=== PATIENT | male | born 1930 | race Caucasian/White ===

== ENCOUNTER → 2017-01-16 | Day surgery (SDC) | payer MEDICARE, BC ==
[~2017-01-16] MED LIST: ACETAMINOPHEN PO; AMLODIPINE-BEN1 EAC1 PO; AMLODIPINE-BENA1 CAP PO; ASPIRIN PO; ASPIRIN81 M1; ASPIRIN81 M1 PO; ASPIRIN81 M2 PO; CENTRUM SILVER PO; CIPRO PO; CIPRO250 MG PO; CLOPIDOGREL BIS75 MG PO; COLACE PO; COLACE50 MG PO; DARVOCET-N 1001 TA2 PO; FEOSOL PO; FISH OIL 1,0001 CAP PO; FISH OIL 1,0001 EAC1 PO; FISH OIL 1,001000 MG PO; FISH OIL300 MG PO; IMDUR-ER30 M3 PO; ISOSORBIDE DINI30 MG PO; JANUVIA PO; JANUVIA25 MG PO; KLONOPIN1 MG PO; LIPITOR PO; LISINOPRIL PO; LISINOPRIL20 MG PO; MULTIVITAMIN1 UDCAP PO; NORCO 5/325 TAB1 TAB PO; PLAVIX PO; PRINIVIL20 M1 PO; SENNA S TABLET1 TAB PO; SIMVASTATIN40 MG PO; TOPROL XL PO; TYLENOL325 M1 PO; ZOCOR PO
--- NOTE | ~2017-01-16 | OR ---
Unit #: [id number] #: [id number] Patient: JOVANNA RODRIGUEZ SR [id number] [address] [address] [id number] MR#: [id number] NAME: JOVANNA RODRIGUEZ SR ROOM: Date of Procedure: 01/16/2017 Admission Date: 01/16/2017 Surgeon: Conrad Franco M.D. : 1930 Attending Physician: Conrad Franco M.D. Primary Care Physician: Cricket Garcia D.O. OPERATIVE REPORT PREOPERATIVE DIAGNOSES Dysphagia and heartburn. PROCEDURES PERFORMED Upper gastrointestinal endoscopy and biopsy. POSTOPERATIVE DIAGNOSES 1. The patient had moderate prepyloric antral erosive gastritis with multiple erosions and erythema in the antral area, which was spread diffusely. 2. Rest of the examination up to third part of duodenum was normal. Specifically, no intrinsic stricture or esophagitis was seen. The patient, however, did have a bulge in the proximal esophagus. The etiology of which is not clear. He will be reviewed again in 3 months' time after using lansoprazole for a couple of months. SEDATION USED MAC. DESCRIPTION OF PROCEDURE Following detailed explanation of the potential risks and complications of an upper endoscopy, namely perforation, bleeding, and complications related to sedation, the patient was brought to GI lab and laid in the left lateral decubitus position. Lubricated tip of the Olympus video upper endoscope was passed through the bite block into the proximal esophagus under direct vision. The entire esophageal mucosa was examined. The patient was noted to have a mucosal bulge in the proximal esophagus. This was collapsing intermittently and clearly appeared benign. There was no evidence of esophagitis nor any stricture or mucosal ring. The patient did not have any hiatus hernia. The scope was then advanced into the gastric cavity and the latter was insufflated. Mucosa of the fundus, body, and antrum was examined and moderate prepyloric antral erythema and multiple erosions noted in the antral area. Pylorus was intubated with visualization of the normal duodenal bulb and second and third part of the duodenum. Upon withdrawal and retroflexion; incisura, cardia, and greater curve was examined and a biopsy was obtained from the antrum for CLOtest. The scope was then withdrawn in the distal esophagus. Entire esophageal mucosa was examined all the way up to pharynx and no additional findings were noted. The patient tolerated the procedure without any postprocedure complications. Unit #: [id number] #: [id number] Patient: MICHAEL SRJOVANNA Cat Dictated by..Carmelina Sanchez/keshav TD: 01/16/2017 16:09 JOB #: [id number] CC: Cricket Garcia D.O. OPERATIVE REPORT Page 1 of 1 X Conrad Franco MD X PROCEDURE OPERATIVE NOTE
== END | disposition home or self-care (01) ==
LOC: COPS 06:01
PROVIDERS: Internal Medicine Gastroenterology
PROC: 0DB78ZX Excision of Stomach, Pylorus, Via Natural or Artificial Opening Endoscopic, Diagnostic (ICD-10-PCS; principal; 2017-01-16 07:30)
DX: K29.60 Other gastritis without bleeding (principal); K22.8 Other specified diseases of esophagus; E11.9 Type 2 diabetes mellitus without complications; Z79.84 Long term (current) use of oral hypoglycemic drugs; Z79.899 Other long term (current) drug therapy; Z85.51 Personal history of malignant neoplasm of bladder; Z87.01 Personal history of pneumonia (recurrent); Z87.891 Personal history of nicotine dependence; Z87.11 Personal history of peptic ulcer disease; I25.2 Old myocardial infarction; Z95.1 Presence of aortocoronary bypass graft; Z95.0 Presence of cardiac pacemaker; Z95.2 Presence of prosthetic heart valve
CPT/HCPCS: 82947; 87077; J0290